=== PATIENT | female | born 2005 | race Asian ===

== ENCOUNTER 2024-10-27 23:09 | Emergency (ER) | payer OTHER ==
[~2024-10-27] VITALS: Ht 154.9 cm; Wt 40.9 kg
[2024-10-27 23:24] VITALS: TEMP 98.1
[2024-10-28 00:04] VITALS: BP 102/65; PULSE 86; RESP 18; O2SAT 99
[2024-10-28 00:49] LABS: APPEARANCE,URINE CLEAR (CLEAR); GLUCOSE, URINE (UA) NEGATIVE (NEGATIVE); LEUKOCYTE ESTERASE ,URINE NEGATIVE (NEGATIVE); NITRATE,URINE NEGATIVE (NEGATIVE); OCCULT BLOOD,URINE NEGATIVE (NEGATIVE); SPECIFIC GRAVITIY, URINE 1.026 (1.003-1.030)
[2024-10-28 00:51] LABS: HCG,QUAL URINE NEGATIVE (NEGATIVE)
[2024-10-28] MEDS ORDERED: IOHEXOL 350 MG/ML 100 ML VIAL ONE (01:00)
[2024-10-28 01:11] LABS: PLATELET COUNT (AUTO) 414 K/uL (150-450); RED BLOOD CELL COUNT(AUTO) 6.49 MIL/uL (4.00-5.20); RED CELL DISTRIBUTION WIDTH 17.0 % (11.5-14.5); WHITE BLOOD COUNT (AUTO) 12.0 K/uL (4.5-11.0)
[2024-10-28 01:19] LABS: CALCIUM, TOTAL 8.7 mg/dL (8.8-10.5); CREATININE 0.74 mg/dL (0.60-1.30); GLOMERULAR FILTR. RATE CALC > 60 mL/min (>60); GLUCOSE,RANDOM 86 mg/dL (70-110); SODIUM SERUM 140 mmol/L (136-145); UREA NITROGEN, BLOOD 16 mg/dL (7-18)
[2024-10-28 01:44] LABS: RBC MORPHOLOGY COMMENT ABNORMAL RBC MORPH
== END 2024-10-28 03:18 | disposition home or self-care (01) ==
LOC: EMS 23:14
DX: N83.201 Unspecified ovarian cyst, right side (principal); K59.00 Constipation, unspecified; R11.10 Vomiting, unspecified; R10.30 Lower abdominal pain, unspecified
CPT/HCPCS: 99285; 80048; 81003; 83690; 84703; 85025; 36415; 74177; Q9967